=== PATIENT | female | born 1970 | race Caucasian/White ===

== ENCOUNTER 2017-12-23 06:45 | Day surgery (SDC) | payer BC ==
[~2017-12-23 06:45] MED LIST: LACTATED RINGER'S 1,000 ML IV*
[2017-12-23] MEDS ORDERED: PROPOFOL 20 ML ×2 (08:02→08:49)
[2017-12-23] MEDS ORDERED: CEFAZOLIN 1 GM INJ (08:02)
[2017-12-23] MEDS ORDERED: MIDAZOLAM 1 MG/ML 2 ML INJ (08:02)
[2017-12-23] MEDS ORDERED: FENTAnyl 50 MCG/ML VIAL ×2 (08:02→08:49)
[2017-12-23] MEDS ORDERED: KETOROLAC 30 MG INJ (08:50)
[2017-12-23] MEDS ORDERED: ROCURONIUM 50 MG INJ (08:50)
[2017-12-23] MEDS ORDERED: ONDANSETRON 4 MG INJ (08:50)
[2017-12-23] MEDS ORDERED: METOCLOPRAMIDE 10 MG INJ (08:50)
[2017-12-23] MEDS ORDERED: DEXAMETHASONE 4 MG/ML 1 ML INJ (08:50)
[2017-12-23] MEDS ORDERED: SUGAMMADEX SODIUM 200 MG/2 ML VIAL IV (09:18)
[2017-12-23] MEDS ORDERED: DIPHENHYDRAMINE 50 MG INJ IV (09:30)
[2017-12-23] MEDS ORDERED: LABETALOL HCL 20MG INJ IV (09:30)
[2017-12-23] MEDS ORDERED: FENTAnyl 50 MCG/ML VIAL IV ×2 (09:30)
[2017-12-23] MEDS ORDERED: EPHEDrine SULFATE 50 MG/5 ML SYG IV (09:30)
[2017-12-23] MEDS ORDERED: HYDROmorphONE (0.2 MG/ML) 10ML SYG IV ×2 (09:30)
[2017-12-23] MEDS ORDERED: METOCLOPRAMIDE 10 MG INJ IV (09:30)
[2017-12-23] MEDS: HYDROmorphONE (0.2 MG/ML) 10ML SYG IV ×5 (09:37→10:14)
[2017-12-23] MEDS: ONDANSETRON 4 MG INJ IV (09:37)
[2017-12-23] MEDS: MEPERIDINE 25 MG INJ IV (09:44)
[2017-12-23] MEDS: FENTAnyl 50 MCG/ML VIAL IV ×2 (10:07→10:16)
[2017-12-23] MEDS: OXYCODONE/ACETAMINOPHEN (5/325) TAB PO (11:10)
== END 2017-12-23 11:50 | disposition home or self-care (01) ==
LOC: SDS 06:45
DX: D25.9 Leiomyoma of uterus, unspecified (principal); N84.1 Polyp of cervix uteri
CPT/HCPCS: 58563; 88305